=== PATIENT | female | born 1955 | race Caucasian/White ===

== ENCOUNTER 2016-09-03 06:29 | Day surgery (SDC) | payer BC, MEDICARE ==
[~2016-09-03] VITALS: Ht 160 cm; Wt 68.0 kg
[~2016-09-03 06:29] MED LIST: ATIVAN GENERIC0.5 MG PO; BENADRYL 25MG C25 MG PO; CLEOCIN GENERI150 MG PO; CLOPIDOGREL75 M2 PO; LOPRESSOR 25MG.25 MG PO; PREDNISONE 20MG20 MG PO; TOPIRAMATE50 MG PO; ZANTAC 150150 MG PO
--- NOTE | 2016-09-03 08:07 | Operative Note ---
Surgeon/Diagnoses Surgeon/Criminal Records Technician(s) Date of procedure: 09/03/16 Surgeon: MD Chico Lagunas Diagnoses Pre-op diagnosis: Screening Post-op diagnosis Screening Colon polyps Mild hemorrhoidal cushions Isolated diverticulum of sigmoid colon Procedure Procedure Procedure: Colonoscopy with polypectomy Indications: HUBER FRY is a 61 year-old Female with a history of need for screening colonoscopy. Findings: Bowel preparation fair to moderate Significant lack of relaxation of colon despite fentanyl, Robinul, and glucagon Significant tortuosity and spasticity of sigmoid colon Small isolated diverticulum of sigmoid colon 9 mm complex polyp of RIGHT colon (snared) 8 mm polyp at 50 cm (snared) Procedure Description: After informed consent was obtained, the patient was taken to the endoscopy suite. Monitored anesthesia care ensued after she was transferred to the LEFT lateral decubitus position. Digital rectal exam revealed a few hemorrhoidal tags. The colonoscope was placed in position. The entire colon was evaluated. Bowel preparation was fair to moderate with large volume irrigation and suctioning used to improve visualization. An isolated diverticulum of the sigmoid colon was noted. Mild hemorrhoidal cushions were seen. Fairly significant tortuosity and severe spasticity the sigmoid colon was noted. Lack of appropriate relaxation of the colon was also encountered despite administration of fentanyl, Robinul, and glucagon. A 9 mm complex polyp of the RIGHT colon was excised by way of snare polypectomy. An 8 mm polyp at [address] snare polypectomy. No additional mucosal lesions were noted. The colonoscope was carefully removed and the patient was transferred to recovery. EBL (ml): 1 Anesthesia: Monitored anesthesia care Complications: No immediate Specimens: 9 mm complex polyp of the RIGHT colon (snared) 8 mm polyp at 50 cm (snared) Disposition Disposition: Stable to recovery from where she will be discharged home. She will follow-up in one week. Repeat colonoscopy is pending pathology but will likely be around 2 years secondary to size/nature of polyps and significant spasticity. Consideration of barium enema must be made secondary to limited visualization ( specifically the sigmoid colon). at 0807
[2016-09-03 08:54] VITALS: BP 101/61
== END 2016-09-03 08:39 | disposition home or self-care (01) ==
LOC: SDC 06:29
PROVIDERS: Surgery
PROC: 0DBF8ZX Excision of Right Large Intestine, Via Natural or Artificial Opening Endoscopic, Diagnostic (ICD-10-PCS; principal; 2016-09-03 07:30)
DX: Z12.11 Encounter for screening for malignant neoplasm of colon (principal); K63.5 Polyp of colon; K57.30 Diverticulosis of large intestine without perforation or abscess without bleeding

== ENCOUNTER → 2017-04-05 | Outpatient (CLI) | payer BC, MEDICARE ==
--- NOTE | 2017-04-08 22:05 | RADIOLOGY REPORT PS360 ---
DIG MAMM-DX UNI-RT W/CAD, US BREAST-RT COMPLETE W/AXILLA . HISTORY: 6 MO FU density/cystic area right breast apparently studies were reviewed with Dr. Cline but now submitted for Dr. Kinney to review. Patient Age: 61 years: Female Ordering Physician: Lashay Garibay MD ----DIGITAL MAMMOGRAM RIGHT BREAST with spot views TECHNIQUE: MLO cc 90 degree standard images with CC and MLO spot views. COMPARISON :June 2016 mammogram and ultrasound FINDINGS Interval enlargement Large lobulated 18 mm density medial right breast . This reveals itself to be a large cyst on subsequent studies but there is minimal flow at the septation along the cyst. It benefit from follow-up and I would again suggest a bilateral mammogram to resume annual scheduled with breast ultrasound June 2017 --- RIGHT BREAST ULTRASOUND including axillary survey Today's study compared to 2 the above mammograms is well as a right breast ultrasound from June 2016. There is been interval enlargement of the cystic area at 1:00. There is a curious flow seen to slightly thickened anterior septation at this cyst. Because of this I would suggest ongoing follow-up. Also minimal wall thickness here. Recommended follow-up right breast ultrasound in 6 months along with resuming annual mammography.. There are scattered other small cysts the right breast for example 5 and 10:00 there is a 6.8 x 5 mm debris-filled cyst or more likely small cluster apocrine cysts. With some minimal septations character minimal echogenicity here. Can be followed . Also at 10:00 there is a small 5 mm cyst more central... Scattered small benign axillary lymph nodes IMPRESSION Right breast: Enlarging cyst mass at the 1 o'clock position right breast It does have some minimal enhancement along thickening anterior septum unlikely of significance but would suggest follow-up ultrasound as well as bilateral mammogram in 6 months to resume annual scheduled and further evaluate this feature BI-RADS CATEGORY: 2_Benign RECOMMENDED FOLLOWUP: 6M 6MONTH FOLLOW-UP Bilateral mammogram 6 months to resume annual screening mammography schedule Suggest include a right breast ultrasound that time to further evaluate this cystic area and other small areas right breast (A letter has been sent to the patient regarding results of the study.)
== END ==
LOC: RAD 12:23
DX: R92.8 Other abnormal and inconclusive findings on diagnostic imaging of breast (principal)
CPT/HCPCS: G0206-RT

== ENCOUNTER → 2017-06-11 | Outpatient (CLI) | payer BC, MEDICARE ==
[2017-06-11 09:06] LABS: BUN 10 mg/dL (7-18); GFR (ESTIMATED) 64 ML/MIN (59-)
--- NOTE | 2017-06-11 15:44 | RADIOLOGY REPORT PS360 ---
CTA-NECK INDICATION: Visual field defect of the right eye VISUAL FIELD DEFECT RT EYE ORDERING PHYSICIAN: MAEVE ERIC PATIENT AGE: 61 years COMPARISON: None TECHNIQUE: Axial images are obtained following bolus administration 100 mils of Isovue-370. Sagittal, coronal, and 3-D reformatted images are reviewed as well. FINDINGS: The aortic arch has an unremarkable appearance as do the great vessels. Both right and left common carotid and internal carotid arteries have an unremarkable appearance. No stenotic lesions, ulcerated plaque, or dissection evident. The vertebral arteries also have an unremarkable appearance. IMPRESSION: Negative CT angiogram of the neck. No stenotic lesions or other vascular abnormalities apparent
--- NOTE | 2017-06-11 15:50 | RADIOLOGY REPORT PS360 ---
CTA-HEAD CLINICAL INDICATION: VISUAL FIELD DEFECT RT EYE ORDERING PHYSICIAN: MAEVE ERIC PATIENT AGE: 61 years TECHNIQUE: Axial images are obtained following the bolus administration 100 mils of Isovue-370. Sagittal, coronal, and 3-D reformatted images are reviewed COMPARISON: None FINDINGS: There is no evidence of aneurysm or arteriovenous malformation. The vessels of the [place] are patent. No enhancing lesions evident within the brain. Patient's pituitary gland is enlarged and better demonstrated on the MRI of the same day. No aneurysm evident that is compressing upon the optic chiasm. The ophthalmic arteries have an unremarkable appearance. Incidental note is made of an impacted maxillary molar on the right and mild TMJ osteoarthritic changes bilaterally. IMPRESSION: Negative CTA of the brain
--- NOTE | 2017-06-11 15:50 | RADIOLOGY REPORT PS360 ---
CTA-HEAD CLINICAL INDICATION: VISUAL FIELD DEFECT RT EYE ORDERING PHYSICIAN: MAEVE ERIC PATIENT AGE: 61 years TECHNIQUE: Axial images are obtained following the bolus administration 100 mils of Isovue-370. Sagittal, coronal, and 3-D reformatted images are reviewed COMPARISON: None FINDINGS: There is no evidence of aneurysm or arteriovenous malformation. The vessels of the [place] are patent. No enhancing lesions evident within the brain. Patient's pituitary gland is enlarged and better demonstrated on the MRI of the same day. No aneurysm evident that is compressing upon the optic chiasm. The ophthalmic arteries have an unremarkable appearance. Incidental note is made of an impacted maxillary molar on the right and mild TMJ osteoarthritic changes bilaterally. IMPRESSION: Negative CTA of the brain
--- NOTE | 2017-06-15 10:31 | RADIOLOGY REPORT PS360 ---
MRI-BRAIN W/WO HISTORY: Is is lesion. Increasing headaches with visual disturbance and dizziness ENLARGED PITUITARY GLAND ORDERING PHYSICIAN: MAEVE ERIC PATIENT AGE: 61 years COMPARISON: 10/05/2016 TECHNIQUE: Standard multiplanar multiecho sequences are performed without and with gadolinium enhancement. Dynamic thin section coronal and sagittal images are obtained of the pituitary pre and postcontrast FINDINGS: No midline shift, mass effect, intracranial hemorrhage, or hydrocephalus is evident. There are few T2 white matter hyperintensities which are nonspecific and not significantly changed. There is no evidence of acute infarction and no abnormal restricted diffusion. The cerebellopontine angles, cerebellum, and brainstem have an unremarkable appearance. Thin section pre and post enhanced images are obtained of the pituitary once again showing an enlarged pituitary gland measuring up to 15 mm transverse at 8 mm cephalad to caudad similar to the previous exam. There is contrast in convex superior margin of the pituitary gland and is slightly more prominent on the right side. The central aspect of the pituitary abuts the infra aspect of the optic chiasm and medial aspect and proximal aspect of the optic nerves bilaterally without significant displacement and with no significant change. There is a small area of decreased intensity involving the posterior aspect of the pituitary gland on the post enhanced images measuring 4 mm consistent with a small microadenoma. No other abnormalities are evident. IMPRESSION: 1. Overall no significant change in the mildly enlarged pituitary and small microadenoma. The enlarged pituitary does abut the infra aspect of the optic chiasm and proximal aspect of the optic nerves medially as before. 2. No change scattered T2 white matter hyperintensities likely due to small ischemic gliotic foci from microvascular disease
== END ==
LOC: RAD 08:48
PROVIDERS: Ophthalmology Neuro-ophthalmology
DX: D35.2 Benign neoplasm of pituitary gland (principal); E23.6 Other disorders of pituitary gland; H53.451 Other localized visual field defect, right eye
CPT/HCPCS: A9576; Q9967